=== PATIENT | male | born 1950 | race Caucasian/White ===

== ENCOUNTER 2018-07-24 09:32 | Day surgery (SDC) | payer MEDICARE ==
[2016-04-22 08:45] VITALS: BMI 26.6
[2018-07-24] MEDS ORDERED: Lactated Ringer's 500 ML IV ONE (11:57)
[2018-07-24] MEDS ORDERED: Propofol 10 mg/ml Inj (20 ML) ONE (13:23)
[2018-07-24 14:09] VITALS: TEMP 98; O2SAT 100
[2018-07-24 14:11] VITALS: BP 139/77; PULSE 80; RESP 15
== END 2018-07-24 15:10 | disposition home or self-care (01) ==
LOC: H.ENDO 09:32 → EDSTATUS 15:09 → H.ENDO 15:10
PROVIDERS: ATTEND Internal Medicine Gastroenterology
DX: K30 Functional dyspepsia (principal); Z86.73 Personal history of transient ischemic attack (TIA), and cerebral infarction without residual deficits; E78.5 Hyperlipidemia, unspecified; E11.9 Type 2 diabetes mellitus without complications; I10 Essential (primary) hypertension; K44.9 Diaphragmatic hernia without obstruction or gangrene; K31.89 Other diseases of stomach and duodenum
CPT/HCPCS: 43239; 82948; 88305; J2001; J2704; J7120